=== PATIENT | male | born 1960 | race Caucasian/White ===

== ENCOUNTER 2016-11-14 22:01 | Emergency (ER) | payer OTHER ==
[2016-11-14 22:13] VITALS: BP 165/103
[2016-11-14] MEDS ORDERED: Sodium Chloride 0.9% 500 ML IV ONE (22:25)
[2016-11-14] MEDS ORDERED: Sodium Chloride 0.9% 10 ML Syringe FLUSH PRN (22:25)
[2016-11-14] MEDS ORDERED: Dicyclomine 10 MG Cap PO ONE (22:32)
[2016-11-14] MEDS ORDERED: Ketorolac 30 MG/ML SDV IVPUSH SCH (22:45)
--- NOTE | 2016-11-15 00:11 | EDM.PDOC ---
ED HPI RENAL/ - General Chief Complaint: Flank Pain Stated Complaint: LEFT SIDE PAIN Time Seen by Provider: 11/14/16 22:25 Source of Information: Reports: Patient, RN notes reviewed - History of Present Illness INITIAL COMMENTS - FREE TEXT/NARRATIVE: 56-year-old male comes in with left-sided flank and left lower abdominal discomfort. Started about 2 or 3 hours ago. Pain is been primarily in the left lower abdomen radiating toward the left groin. He has maybe had some mild low back discomfort but no major back pain. He did have some mild nausea, no vomiting or diarrhea. He states he has felt some voiding urgency and feels like he has had some difficulty voiding compared to usual. No gross hematuria. He has not been constipated. The pain does not radiate over to the right side of his abdomen. - Related Data Allergies/ADRs: Allergies Allergy/AdvReac Type Severity Reaction Status Date / Time No Known Allergies Allergy Verified 11/14/16 22:13 Home Meds: Home Meds Triamterene/Hydrochlorothiazid [Triamterene-HCTZ 37.5-25 MG] 0.5 tab PO DAILY [History] Past Medical History HEENT History: Reports: Other (see below) Other HEENT History: menieres disease - Past Surgical History HEENT Surgical History: Reports: Other (see below) Other HEENT Surgeries/Procedures: ORIF Orbit Social & Family History - Family History Family Medical History: Noncontributory - Tobacco Use Smoking Status *Q: Never Smoker Second Hand Smoke Exposure: No - Caffeine Use Caffeine Use: Reports: None - Recreational Drug Use Recreational Drug Use: No ED ROS GENERAL - Review of Systems Review Of Systems: See Below Constitutional: Denies: fever, chills HEENT: Reports: No symptoms Respiratory: Denies: shortness of breath Cardiovascular: Denies: Chest pain GI/Abdominal: Reports: Abdominal pain (left lower abdomen), Nausea (mild). Denies: Black stool, Diarrhea, Hematochezia, Melena, Vomiting : Reports: urgency (mild) Musculoskeletal: Reports: back pain (very slight discomfort left back) Skin: Reports: no symptoms Neurological: Reports: no symptoms ED EXAM, RENAL/ - Physical Exam Exam: See Below General Appearance: alert, moderate distress Throat/Mouth: Normal inspection, Normal oropharynx Head: atraumatic Neck: supple, full range of motion Respiratory/Chest: no respiratory distress, lungs clear, normal breath sounds Cardiovascular: regular rate, rhythm, no edema GI/Abdominal: soft, tender (very slight tenderness left lower abdomen). No: guarding, rebound Back Exam: No: CVA tenderness (L), CVA tenderness (R) Extremities: normal inspection, normal range of motion Course - Vital Signs Last Recorded V/S: Last Vital Signs Temp 97.3 F 11/14/16 22:10 Pulse 77 11/14/16 22:10 Resp 16 11/14/16 22:10 BP 165/103 H 11/14/16 22:10 Pulse Ox 100 11/14/16 22:10 - Orders/Labs/Meds Orders: Active Orders 24 hr Category Date Time Status Peripheral IV Care [RC] . DIRECTED Care 11/14/16 22:25 Active Abdomen Pelvis wo Cont [CT] Stat Exams 11/14/16 23:55 Taken Ketorolac [Toradol] Med 11/14/16 22:45 Active 30 mg IVPUSH ONETIME Sodium Chloride 0.9% [Saline Flush] Med 11/14/16 22:25 Active 10 ml FLUSH ASDIRECTED PRN Peripheral IV Insertion Adult [OM.PC] Stat Oth 11/14/16 22:25 Ordered Medication Orders Ketorolac Tromethamine (Toradol) 30 mg IVPUSH ONETIME [facility] Last Admin: 11/14/16 22:52 Dose: 30 mg Sodium Chloride (Saline Flush) 10 ml FLUSH ASDIRECTED PRN PRN Reason: Keep Vein Open Last Admin: 11/14/16 22:53 Dose: 10 ml Labs: Laboratory Tests 11/14/16 11/14/16 11/14/16 Range/Units 22:35 22:50 22:50 WBC 11.99 H (4.23-9.07) K/mm3 RBC 4.95 (4.63-6.08) M/mm3 Hgb 14.7 (13.7-17.5) gm/L Hct 43.4 (40.1-51.0) % MCV 87.7 (79.0-92.2) fl MCH 29.7 (25.7-32.2) pg MCHC 33.9 (32.2-35.5) g/dl RDW Std Deviation 39.2 (35.1-43.9) fL Plt Count 215 (163-337) K/mm3 MPV 11.3 (9.4-12.3) fl Neut % (Auto) 68.6 H (34.0-67.9) % Lymph % (Auto) 18.8 L (21.8-53.1) % [place] % (Auto) 10.8 (5.3-12.2) % Eos % (Auto) 1.3 (0.8-7.0) Baso % (Auto) 0.2 (0.1-1.2) % Neut # 8.22 H (1.78-5.38) K/mm3 Lymph # 2.26 (1.32-3.57) K/mm3 [place] # 1.30 H (0.30-0.82) K/mm3 Eos # 0.16 (0.04-0.54) K/mm3 Baso # 0.02 (0.01-0.08) K/mm3 Sodium 139 (136-145) mEq/L Potassium 3.6 (3.5-5.1) mEq/L Chloride 101 (98-107) mEq/L Carbon Dioxide 29 (21-32) mEq/L Anion Gap 12.6 (5-15) BUN 14 (7-18) mg/dL Creatinine 1.0 (0.7-1.3) mg/dL Est Cr Clr Drug Dosing 94.76 mL/min Estimated GFR (MDRD) > 60 (>60) mL/min BUN/Creatinine Ratio 14.0 (14-18) Glucose 128 H (74-106) mg/dL Calcium 8.8 (8.5-10.1) mg/dL Total Bilirubin 0.4 (0.2-1.0) mg/dL AST 18 (15-37) U/L ALT 22 (16-63) U/L Alkaline Phosphatase 96 (46-116) U/L Total Protein 7.4 (6.4-8.2) g/dl Albumin 4.2 (3.4-5.0) g/dl Globulin 3.2 gm/dL Albumin/Globulin Ratio 1.3 (1-2) Urine Color Light yellow (Yellow) Urine Appearance Slt cloudy H (Clear) Urine pH 7.0 (5.0-8.0) Ur Specific [place] 1.020 (1.005-1.030) Urine Protein Negative (Negative) Urine Glucose (UA) Negative (Negative) Urine Ketones Negative (Negative) Urine Occult Blood 2+ H (Negative) Urine Nitrite Negative (Negative) Urine Bilirubin Negative (Negative) Urine Urobilinogen 0.2 (0.2-1.0) Ur Leukocyte Esterase Negative (Negative) Urine RBC 0-5 (0-5) /hpf Urine WBC 0-5 (0-5) /hpf Ur Squamous Epith Cells Not seen (0-5) /hpf Amorphous Sediment Few H (NOT SEEN) /hpf Urine Bacteria Rare (FEW) /hpf Urine Mucus Not seen (FEW) /hpf Meds: Medications Generic Name Dose Route Start Last Admin Trade Name Freq PRN Reason Stop Dose Admin Ketorolac Tromethamine 30 mg 11/14/16 22:45 11/14/16 22:52 Toradol IVPUSH 30 mg ONETIME CHETNA Administration Sodium Chloride 10 ml 11/14/16 22:25 11/14/16 22:53 Saline Flush FLUSH 10 ml ASDIRECTED PRN Administration Keep Vein Open Discontinued Medications Generic Name Dose Route Start Last Admin Trade Name Freq PRN Reason Stop Dose Admin Dicyclomine HCl 10 mg 11/14/16 22:32 11/14/16 22:52 Bentyl PO 11/14/16 22:33 10 mg ONETIME ONE Administration Sodium Chloride 500 mls @ 999 mls/hr 11/14/16 22:25 11/14/16 22:51 Normal Saline IV 11/14/16 22:55 999 mls/hr .BOLUS ONE Administration - Re-Assessments/Exams Free Text/Narrative Re-Assessment/Exam: 11/15/16 00:11. he has had good relief of discomfort from IV Toradol. However because he does have 2+ hematuria and was having very significant discomfort at home and even on arrival we're going to do a renal CT to determine if this indeed is a kidney stone problem or not. 11/15/16 01:00. CT did show a stone, 5 mm distal left UVJ with some hydronephrosis and perinephric stranding, see report for details. He did obtained good relief of his discomfort with IV Toradol. Discharge instructions as documented Departure - Departure Time of Disposition: 01:01 Disposition: Home, Self-Care 01 Condition: fair Clinical Impression: Ureteric colic Instructions: Kidney Stones, [id number] Referrals: PCP,None [Primary Care Provider] - Forms: ED Department Discharge Additional Instructions: you have a 5 mm size stone sitting just on top of the bladder on the left side. Use strainer when voiding to check for passage of stone. If you do see the stone in the strainer then you know that you passed the stone. If you have not passed the stone by Friday morning I suggest following up at our [facility] walk-in clinic to obtain referral and appointment to see a Urologist. you can take Tylenol up to 4 times daily as needed for discomfort. You may take an occasional dose of Advil or ibuprofen 600 mg but I would recommend not taking that more than 2 or 3 times daily. You may take Percocet if needed for severe pain not relieved by above medications. Do not take Tylenol and Percocet at the same time. It is recommended that You not be driving when taking Percocet and to not drive for at least 6 hours after taking Percocet which is a fairly strong narcotic medication. return to ED if symptoms worsening in any way - My Orders Last 24 Hours: My Active Orders 11/14/16 22:25 Peripheral IV Care [RC] . DIRECTED Sodium Chloride 0.9% [Saline Flush] 10 ml FLUSH ASDIRECTED PRN Peripheral IV Insertion Adult [OM.PC] Stat 11/14/16 22:45 Ketorolac [Toradol] 30 mg IVPUSH ONETIME 11/14/16 23:55 Abdomen Pelvis wo Cont [CT] Stat - Assessment/Plan Last 24 Hours: My Active Orders 11/14/16 22:25 Peripheral IV Care [RC] . DIRECTED Sodium Chloride 0.9% [Saline Flush] 10 ml FLUSH ASDIRECTED PRN Peripheral IV Insertion Adult [OM.PC] Stat 11/14/16 22:45 Ketorolac [Toradol] 30 mg IVPUSH ONETIME 11/14/16 23:55 Abdomen Pelvis wo Cont [CT] Stat
--- NOTE | 2016-11-15 07:17 | CT ---
CT abdomen and pelvis Technique: Multiple axial sections were obtained from above the dome of the diaphragm inferiorly through the pubic symphysis. Intravenous and oral contrast not given. Study performed as a renal stone protocol. Comparison: No previous study. Findings: 5 mm obstructing stone is seen within the distal left ureter slightly proximal to the UVJ. This causes left-sided hydronephrosis of a horseshoe kidney. No abnormal calcifications are seen within the kidneys. Inflammatory change is seen around the left side of the horseshoe kidney compatible with change from the obstructing stone. Visualized lung bases show nothing acute. Noncontrast appearance of the liver appears within normal limits. Spleen also appears within normal limits. Adrenal glands show no nodule. Pancreas appears within normal limits. Aorta shows no aneurysmal dilatation. No retroperitoneal adenopathy or mesenteric abnormalities are seen. No pelvic mass or adenopathy is noted. Small fat-containing left inguinal hernia is noted. Incidental sigmoid diverticuli seen with no inflammatory change. Appendix is not visualized. Bone window settings were reviewed which show mild scattered degenerative change within the spine. Small fat-containing umbilical hernia is noted. Impression: 1. Horseshoe kidney. Inflammatory change on the left side of the horseshoe kidney with left-sided hydronephrosis caused by an obstructing 5 mm stone within the distal left ureter near the UVJ. 2. Other incidental findings as noted above. Diagnostic code #3 I agree with preliminary report issued by [facility] (preliminary report dictated on 11/15/16, 1:39 AM Central Time)
== END 2016-11-15 01:20 | disposition home or self-care (01) ==
LOC: JD.ED 22:01
DX: N23 Unspecified renal colic (principal); Z79.899 Other long term (current) drug therapy; Z98.890 Other specified postprocedural states
CPT/HCPCS: 36415; 74176; 80053; 81001; 85025; 96361; 96374; 99284; A9270; J1885; J7040; J7050

== ENCOUNTER 2016-11-16 19:23 | Emergency (ER) | payer OTHER ==
[2016-11-16 19:33] VITALS: BP 161/98
[2016-11-16] MEDS ORDERED: Sodium Chloride 0.9% 1,000 ML IV SCH (19:45)
[2016-11-16] MEDS ORDERED: HYDROmorphone 1 MG/ML Syringe IVPUSH ONE (19:46)
[2016-11-16] MEDS ORDERED: Ketorolac 30 MG/ML SDV IVPUSH ONE (19:46)
[2016-11-16] MEDS ORDERED: Ondansetron 4 MG/2 ML SDV IVPUSH ONE (19:46)
--- NOTE | 2016-11-16 19:52 | EDM.PDOC ---
ED HPI RENAL/ - General Chief Complaint: Abdominal Pain Stated Complaint: LOWER LEFT SIDE PAIN Time Seen by Provider: 11/16/16 19:29 Source of Information: Reports: Patient History Limitations: Reports: No limitations - History of Present Illness INITIAL COMMENTS - FREE TEXT/NARRATIVE: This is a 56 year old male. He was diagnosised on 11/14/[address] scan with a left 5 mm ureteral stone by the UVJ. There was hydronephrosis noted on the left since as well. He was to come to the [facility] walk-in clinic on Friday for referral to at urologist if he does not pass the stone by Friday. Around 5 PM this evening onset of sharp pain in the left flank area. He took a percocet but it did not seem to help. Had nausea but no vomiting noted. He has not noted any blood in his urine. Do to the continued pain he comes back to the ER. No fever or chills have been noted today. The pain is still in the left flank and does not radiate into the left groin or testicles yet. - Related Data Allergies/ADRs: Allergies Allergy/AdvReac Type Severity Reaction Status Date / Time No Known Allergies Allergy Verified 11/16/16 19:33 Home Meds: Home Meds Triamterene/Hydrochlorothiazid [Triamterene-HCTZ 37.5-25 MG] 0.5 tab PO DAILY [History] Ondansetron [Zofran ODT] 4 mg PO Q6H PRN #10 tab.dis 11/16/16 [Rx] Tamsulosin [Flomax] 0.4 mg PO QAM #5 cap.er 11/16/16 [Rx] Past Medical History HEENT History: Reports: Other (see below) Other HEENT History: menieres disease Genitourinary History: Reports: Renal calculus - Past Surgical History HEENT Surgical History: Reports: Other (see below) Other HEENT Surgeries/Procedures: ORIF Orbit Social & Family History - Family History Family Medical History: Noncontributory - Tobacco Use Smoking Status *Q: Never Smoker Second Hand Smoke Exposure: No - Caffeine Use Caffeine Use: Reports: None - Recreational Drug Use Recreational Drug Use: No ED ROS GENERAL - Review of Systems Review Of Systems: See Below Constitutional: Denies: fever, chills HEENT: Reports: No symptoms Respiratory: Reports: no symptoms Cardiovascular: Reports: No symptoms Endocrine: Reports: no symptoms GI/Abdominal: Reports: Nausea. Denies: Abdominal pain, Diarrhea, Vomiting : Reports: flank pain. Denies: hematuria Musculoskeletal: Reports: no symptoms Skin: Reports: no symptoms Neurological: Reports: no symptoms Psychiatric: Reports: No symptoms Hematologic/Lymphatic: Reports: no symptoms ED EXAM, RENAL/ - Physical Exam Exam: See Below Exam Limited By: No limitations General Appearance: alert, WD/WN, mild distress Eye Exam: bilateral eye: normal inspection Ears: normal external exam Nose: normal inspection Throat/Mouth: Normal inspection, Normal lips, Normal voice Head: normocephalic Neck: supple Respiratory/Chest: no respiratory distress, lungs clear, normal breath sounds Cardiovascular: regular rate, rhythm, no murmur GI/Abdominal: other (Enlarged abdomin with left flank pain noted.) Back Exam: full range of motion Extremities: normal inspection, normal range of motion Neurological: alert, oriented Psychiatric: anxious Skin Exam: Warm, Dry Course - Vital Signs Last Recorded V/S: Last Vital Signs Temp 98.5 F 11/16/16 19:30 Pulse 83 11/16/16 19:30 Resp 20 11/16/16 19:30 BP 161/98 H 11/16/16 19:30 Pulse Ox 100 11/16/16 19:30 - Orders/Labs/Meds Orders: Active Orders 24 hr Category Date Time Status Sodium Chloride 0.9% [Normal Saline] 1,000 ml Med 11/16/16 19:45 Active IV ASDIRECTED Medication Orders Sodium Chloride (Normal Saline) 1,000 mls @ 1,000 mls/hr IV ASDIRECTED CHETNA Last Admin: 11/16/16 19:53 Dose: 1,000 mls/hr Labs: Laboratory Tests 11/16/16 11/16/16 11/16/16 Range/Units 19:40 19:40 20:14 WBC 13.66 H (4.23-9.07) K/mm3 RBC 4.90 (4.63-6.08) M/mm3 Hgb 14.6 (13.7-17.5) gm/L Hct 42.7 (40.1-51.0) % MCV 87.1 (79.0-92.2) fl MCH 29.8 (25.7-32.2) pg MCHC 34.2 (32.2-35.5) g/dl RDW Std Deviation 39.0 (35.1-43.9) fL Plt Count 220 (163-337) K/mm3 MPV 11.6 (9.4-12.3) fl Neut % (Auto) 61.1 (34.0-67.9) % Lymph % (Auto) 25.3 (21.8-53.1) % [place] % (Auto) 12.0 (5.3-12.2) % Eos % (Auto) 1.2 (0.8-7.0) Baso % (Auto) 0.1 (0.1-1.2) % Neut # 8.35 H (1.78-5.38) K/mm3 Lymph # 3.45 (1.32-3.57) K/mm3 [place] # 1.64 H (0.30-0.82) K/mm3 Eos # 0.16 (0.04-0.54) K/mm3 Baso # 0.02 (0.01-0.08) K/mm3 Manual Slide Review Normal smear Sodium 140 (136-145) mEq/L Potassium 3.2 L (3.5-5.1) mEq/L Chloride 103 (98-107) mEq/L Carbon Dioxide 27 (21-32) mEq/L Anion Gap 13.2 (5-15) BUN 17 (7-18) mg/dL Creatinine 1.4 H (0.7-1.3) mg/dL Est Cr Clr Drug Dosing TNP Estimated GFR (MDRD) 52 (>60) mL/min BUN/Creatinine Ratio 12.1 L (14-18) Glucose 147 H (74-106) mg/dL Calcium 8.5 (8.5-10.1) mg/dL Total Bilirubin 0.3 (0.2-1.0) mg/dL AST 15 (15-37) U/L ALT 17 (16-63) U/L Alkaline Phosphatase 90 (46-116) U/L Total Protein 7.1 (6.4-8.2) g/dl Albumin 3.9 (3.4-5.0) g/dl Globulin 3.2 gm/dL Albumin/Globulin Ratio 1.2 (1-2) Urine Color Yellow (Yellow) Urine Appearance Clear (Clear) Urine pH 6.5 (5.0-8.0) Ur Specific [place] 1.025 (1.005-1.030) Urine Protein Negative (Negative) Urine Glucose (UA) Negative (Negative) Urine Ketones Negative (Negative) Urine Occult Blood Negative (Negative) Urine Nitrite Negative (Negative) Urine Bilirubin Negative (Negative) Urine Urobilinogen 0.2 (0.2-1.0) Ur Leukocyte Esterase Negative (Negative) Urine RBC 0-5 (0-5) /hpf Urine WBC 0-5 (0-5) /hpf Ur Epithelial Cells 0-5 (0-5) /hpf Urine Bacteria Rare (FEW) /hpf Urine Mucus Not seen (FEW) /hpf Meds: Medications Generic Name Dose Route Start Last Admin Trade Name Freq PRN Reason Stop Dose Admin Sodium Chloride 1,000 mls @ 1,000 mls/hr 11/16/16 19:45 11/16/16 19:53 Normal Saline IV 1,000 mls/hr ASDIRECTED CHETNA Administration Discontinued Medications Generic Name Dose Route Start Last Admin Trade Name Freq PRN Reason Stop Dose Admin Hydromorphone HCl 0.5 mg 11/16/16 19:46 11/16/16 19:56 Dilaudid IVPUSH 11/16/16 19:47 0.5 mg ONETIME ONE Administration Ketorolac Tromethamine 30 mg 11/16/16 19:46 11/16/16 19:58 Toradol IVPUSH 11/16/16 19:47 30 mg ONETIME ONE Administration Ondansetron HCl 4 mg 11/16/16 19:46 11/16/16 19:54 Zofran IVPUSH 11/16/16 19:47 4 mg ONETIME ONE Administration - Re-Assessments/Exams Free Text/Narrative Re-Assessment/Exam: 11/16/16 23:21 patient is feeling much better and he wants to go home. Departure - Departure Time of Disposition: 23:21 Disposition: Home, Self-Care 01 Condition: good Clinical Impression: Left nephrolithiasis, Ureteral colic Prescriptions: Ondansetron [Zofran ODT] 4 mg PO Q6H PRN #10 tab.dis PRN Reason: Nausea Tamsulosin [Flomax] 0.4 mg PO QAM #5 cap.er Forms: ED Department Discharge Additional Instructions: continue to drink lots of fluids, strain your urine for the kidney stone, if you do not pass the stone by Friday morning followup with [facility] walk-in clinic to get hooked up with the urologist, start taking the Flomax, use the Zofran as needed for nausea and pain medications as needed, if your symptoms worsen or you develop a fever return to the ER - My Orders Last 24 Hours: My Active Orders 11/16/16 19:45 Sodium Chloride 0.9% [Normal Saline] 1,000 ml IV ASDIRECTED - Assessment/Plan Last 24 Hours: My Active Orders 11/16/16 19:45 Sodium Chloride 0.9% [Normal Saline] 1,000 ml IV ASDIRECTED
== END 2016-11-16 23:37 | disposition home or self-care (01) ==
LOC: JD.ED 19:23
DX: N20.2 Calculus of kidney with calculus of ureter (principal); Z79.899 Other long term (current) drug therapy
CPT/HCPCS: 36415; 80053; 81001; 85025; 96361; 96374; 96375; 99284; J1170; J1885; J2405; J7040

== ENCOUNTER 2016-11-17 20:25 | Emergency (ER) | payer OTHER ==
[2016-11-17] MEDS ORDERED: HYDROmorphone 1 MG/ML Syringe IVPUSH ONE (21:00)
[2016-11-17] MEDS ORDERED: Sodium Chloride 0.9% 1,000 ML IV SCH (21:00)
[2016-11-17] MEDS ORDERED: Sodium Chloride 0.9% 10 ML Syringe FLUSH PRN (21:00)
[2016-11-17] MEDS ORDERED: Ondansetron 4 MG/2 ML SDV IVPUSH ONE (21:00)
[2016-11-17] MEDS ORDERED: LORazepam 2 MG/ML MDV IVPUSH ONE (21:00)
[2016-11-17] MEDS ORDERED: Metoclopramide 10 MG/2 ML SDV IVPUSH ONE (21:39)
--- NOTE | 2016-11-17 22:19 | EDM.PDOC ---
ED HPI RENAL/ - General Chief Complaint: Genitourinary Problem Stated Complaint: LOWER BACK PAIN NAUSEA CONSTIPATION Time Seen by Provider: 11/17/16 20:42 Source of Information: Reports: Patient, RN notes reviewed - History of Present Illness INITIAL COMMENTS - FREE TEXT/NARRATIVE: 56-year-old male comes in with continued left flank and back discomfort. He presented to the ED 3 or 4 days ago with left flank back and left lower pelvic discomfort compatible with kidney stone. CT of the abdomen did confirm a 5 mm stone at the left UVJ junction with some hydronephrosis. he was treated with IV nausea and pain medicine and had good relief of his discomfort upon discharge. He then returned to the ED yesterday evening with recurrence of discomfort. See that record for details. He was treated with further IV fluid and pain medicine , started on Flomax as well. He states today he has been "awful". He continues to have a lot of left-sided discomfort in the left flank radiating to the back and also down into the groin. He has had a lot of nausea, some vomiting. He states he has not been able to eat. Not drinking fluids well. He has tried taken a pain pill or 2 today but not sure if he's kept any of that down. He also feels that he is getting constipated. Does not remember when he has last had a BM. No fever or chills. - Related Data Allergies/ADRs: Allergies Allergy/AdvReac Type Severity Reaction Status Date / Time No Known Allergies Allergy Verified 11/17/16 20:33 Home Meds: Home Meds Triamterene/Hydrochlorothiazid [Triamterene-HCTZ 37.5-25 MG] 0.5 tab PO DAILY [History] Ondansetron [Zofran ODT] 4 mg PO Q6H PRN #10 tab.dis 11/16/16 [Rx] Tamsulosin [Flomax] 0.4 mg PO QAM #5 cap.er 11/16/16 [Rx] Past Medical History HEENT History: Reports: Other (see below) Other HEENT History: menieres disease Genitourinary History: Reports: Renal calculus - Infectious Disease History Infectious Disease History: Reports: Chicken pox - Past Surgical History HEENT Surgical History: Reports: Other (see below) Other HEENT Surgeries/Procedures: ORIF Orbit Social & Family History - Family History Family Medical History: Noncontributory - Tobacco Use Smoking Status *Q: Never Smoker Second Hand Smoke Exposure: No - Caffeine Use Caffeine Use: Reports: None - Recreational Drug Use Recreational Drug Use: No ED ROS GENERAL - Review of Systems Review Of Systems: See Below Constitutional: Denies: fever, chills HEENT: Reports: No symptoms Respiratory: Denies: shortness of breath Cardiovascular: Denies: Chest pain GI/Abdominal: Reports: Abdominal pain (left flank pain), Nausea, Vomiting : Denies: hematuria Musculoskeletal: Reports: back pain (left-sided). Denies: joint pain Neurological: Reports: dizziness (mild). Denies: numbness, tingling ED EXAM, RENAL/ - Physical Exam Exam: See Below General Appearance: alert, anxious, moderate distress Eye Exam: bilateral eye: PERRL Throat/Mouth: Other. No: Inflammation Head: atraumatic. No: facial swelling Neck: supple Respiratory/Chest: no respiratory distress, lungs clear, normal breath sounds Cardiovascular: regular rate, rhythm GI/Abdominal: tender (there is mild tenderness of the left lower abdomen) Back Exam: CVA tenderness (L) (mild). No: CVA tenderness (R) Extremities: normal inspection, normal range of motion Neurological: alert, oriented, no motor/sensory deficits Skin Exam: Warm, Dry, Normal color, No rash Course - Vital Signs Last Recorded V/S: Last Vital Signs Temp 98.6 F 11/17/16 20:34 Pulse 81 11/17/16 20:34 Resp 18 11/17/16 20:34 BP 164/86 H 11/17/16 20:34 Pulse Ox 96 11/17/16 20:34 - Orders/Labs/Meds Orders: Active Orders 24 hr Category Date Time Status Peripheral IV Care [RC] . DIRECTED Care 11/17/16 21:01 Active Ketorolac [Toradol] Med 11/18/16 01:00 Active 30 mg IVPUSH ONETIME Ketorolac [Toradol] Med 11/18/16 07:00 Active 30 mg IVPUSH ONETIME Sodium Chloride 0.9% [Normal Saline] 1,000 ml Med 11/18/16 01:00 Active IV ASDIRECTED Sodium Chloride 0.9% [Normal Saline] 1,000 ml Med 11/18/16 07:00 Active IV ASDIRECTED Sodium Chloride 0.9% [Normal Saline] 1,000 ml Med 11/17/16 21:00 Active IV ONETIME Sodium Chloride 0.9% [Saline Flush] Med 11/17/16 21:00 Active 10 ml FLUSH ASDIRECTED PRN Peripheral IV Insertion Adult [OM.PC] Stat Oth 11/17/16 21:00 Ordered Medication Orders Sodium Chloride (Normal Saline) 1,000 mls @ 999 mls/hr IV ONETIME CHETNA Last Admin: 11/17/16 21:10 Dose: 999 mls/hr Sodium Chloride (Normal Saline) 1,000 mls @ 150 mls/hr IV ASDIRECTED CHETNA Last Admin: 11/18/16 01:04 Dose: 150 mls/hr Sodium Chloride (Normal Saline) 1,000 mls @ 75 mls/hr IV ASDIRECTED CHETNA Ketorolac Tromethamine (Toradol) 30 mg IVPUSH ONETIME CHETNA Last Admin: 11/18/16 01:06 Dose: 30 mg Ketorolac Tromethamine (Toradol) 30 mg IVPUSH ONETIME CHETNA Last Admin: 11/18/16 06:57 Dose: 30 mg Sodium Chloride (Saline Flush) 10 ml FLUSH ASDIRECTED PRN PRN Reason: Keep Vein Open Last Admin: 11/17/16 21:10 Dose: 10 ml Labs: Laboratory Tests 11/18/16 Range/Units 00:05 Urine Color Yellow (Yellow) Urine Appearance Clear (Clear) Urine pH 6.0 (5.0-8.0) Ur Specific [place] 1.020 (1.005-1.030) Urine Protein Negative (Negative) Urine Glucose (UA) Negative (Negative) Urine Ketones Trace H (Negative) Urine Occult Blood Trace-lysed H (Negative) Urine Nitrite Negative (Negative) Urine Bilirubin Negative (Negative) Urine Urobilinogen 1.0 (0.2-1.0) Ur Leukocyte Esterase Trace H (Negative) Urine RBC 0-5 (0-5) /hpf Urine WBC 0-5 (0-5) /hpf Ur Squamous Epith Cells Not seen (0-5) /hpf Urine Bacteria Rare (FEW) /hpf Urine Mucus Not seen (FEW) /hpf Meds: Medications Generic Name Dose Route Start Last Admin Trade Name Freq PRN Reason Stop Dose Admin Sodium Chloride 1,000 mls @ 999 mls/hr 11/17/16 21:00 11/17/16 21:10 Normal Saline IV 999 mls/hr ONETIME CHETNA Administration Sodium Chloride 1,000 mls @ 150 mls/hr 11/18/16 01:00 11/18/16 01:04 Normal Saline IV 150 mls/hr ASDIRECTED CHETNA Administration Sodium Chloride 1,000 mls @ 75 mls/hr 11/18/16 07:00 Normal Saline IV ASDIRECTED CHETNA Ketorolac Tromethamine 30 mg 11/18/16 01:00 11/18/16 01:06 Toradol IVPUSH 30 mg ONETIME CHETNA Administration Ketorolac Tromethamine 30 mg 11/18/16 07:00 11/18/16 06:57 Toradol IVPUSH 30 mg ONETIME CHETNA Administration Sodium Chloride 10 ml 11/17/16 21:00 11/17/16 21:10 Saline Flush FLUSH 10 ml ASDIRECTED PRN Administration Keep Vein Open Discontinued Medications Generic Name Dose Route Start Last Admin Trade Name Alexeyq PRN Reason Stop Dose Admin Hydromorphone HCl 1 mg 11/17/16 21:00 11/17/16 21:12 Dilaudid IVPUSH 11/17/16 21:01 1 mg ONETIME ONE Administration Hydromorphone HCl 0.5 mg 11/18/16 00:54 11/18/16 01:08 Dilaudid IVPUSH 11/18/16 00:55 0.5 mg ONETIME ONE Administration Lorazepam 1 mg 11/17/16 21:00 11/17/16 21:16 Ativan IVPUSH 11/17/16 21:01 1 mg ONETIME ONE Administration Metoclopramide HCl 10 mg 11/17/16 21:39 11/17/16 21:50 Reglan IVPUSH 11/17/16 21:40 10 mg ONETIME ONE Administration Ondansetron HCl 4 mg 11/17/16 21:00 11/17/16 21:10 Zofran IVPUSH 11/17/16 21:01 4 mg ONETIME ONE Administration - Re-Assessments/Exams Free Text/Narrative Re-Assessment/Exam: 11/17/16 22:28 records of the last 2 visits have been reviewed. I did see him on his initial evaluation 3 or 4 days ago and distinctly remember the 5 mm stone left UVJ. We did discuss the need to followup at the walk-in clinic tomorrow morning if he has not passed the stone by then. The risk of not passing the stone was discussed with him. He will need to see a Urologist. The plan was to have the walk-in clinic help him with a referral as he was initially seen Friday or evening and then again yesterday, Friday evening. 11/18/16 11:40. Sleeping after IV meds 01:00 pain is starting to come back again left flank radiating to left groin and also to the back. He currently is staying at a motel. He has no one to drive him back to the motel and this is now his third visit in 3-1/2 days. He states once he goes back to motel he gets nauseated starts vomiting and has been unable to keep pain pills down. We will keep him here in the ED the remainder of the night. We will continue to give IV fluid and continue to give nausea and pain medicine as needed and then at 7:00 this morning will try hard to get him a referral to a Urologist. 11/18/16 07:07we have an appointment for him to see Dr. Nobles, Urologist [facility] [place] for 3:00 central time this afternoon. Departure - Departure Time of Disposition: 08:00 Disposition: Home, Self-Care 01 Condition: fair Clinical Impression: Ureteral colic, Dehydration Vomiting Qualifiers: Vomiting type: unspecified Vomiting Intractability: intractable Nausea presence : with nausea Qualified Code(s): R11.2 - Nausea with vomiting, unspecified Instructions: Renal Colic, [id number] Referrals: PCP,None [Primary Care Provider] - Forms: ED Department Discharge Additional Instructions: you have an appointment to see Dr Nobles, Urologist [facility] at 3:00 central, 2:[address] scan has been pushed to their clinic. I suggest you be there at least 15 minutes early. We have let you eat now but I suggest you stick to clear liquids only from now until after your appointment. You may take tylenol for pain but do not take anything stronger if you plan to drive. Zofran as previously prescribed if needed for nausea or vomiting. - My Orders Last 24 Hours: My Active Orders 11/17/16 21:00 Sodium Chloride 0.9% [Normal Saline] 1,000 ml IV ONETIME Sodium Chloride 0.9% [Saline Flush] 10 ml FLUSH ASDIRECTED PRN Peripheral IV Insertion Adult [OM.PC] Stat 11/17/16 21:01 Peripheral IV Care [RC] . DIRECTED 11/18/16 01:00 Ketorolac [Toradol] 30 mg IVPUSH ONETIME Sodium Chloride 0.9% [Normal Saline] 1,000 ml IV ASDIRECTED 11/18/16 07:00 Ketorolac [Toradol] 30 mg IVPUSH ONETIME Sodium Chloride 0.9% [Normal Saline] 1,000 ml IV ASDIRECTED - Assessment/Plan Last 24 Hours: My Active Orders 11/17/16 21:00 Sodium Chloride 0.9% [Normal Saline] 1,000 ml IV ONETIME Sodium Chloride 0.9% [Saline Flush] 10 ml FLUSH ASDIRECTED PRN Peripheral IV Insertion Adult [OM.PC] Stat 11/17/16 21:01 Peripheral IV Care [RC] . DIRECTED 11/18/16 01:00 Ketorolac [Toradol] 30 mg IVPUSH ONETIME Sodium Chloride 0.9% [Normal Saline] 1,000 ml IV ASDIRECTED 11/18/16 07:00 Ketorolac [Toradol] 30 mg IVPUSH ONETIME Sodium Chloride 0.9% [Normal Saline] 1,000 ml IV ASDIRECTED
[2016-11-18] MEDS ORDERED: HYDROmorphone 0.5 MG/0.5 ML Syringe IVPUSH ONE (00:54)
[2016-11-18] MEDS ORDERED: Sodium Chloride 0.9% 1,000 ML IV SCH ×2 (01:00→07:00)
[2016-11-18] MEDS ORDERED: Ketorolac 30 MG/ML SDV IVPUSH SCH ×2 (01:00→07:00)
[2016-11-18 08:07] VITALS: BP 151/88
== END 2016-11-18 08:05 | disposition home or self-care (01) ==
LOC: JD.ED 20:25
DX: N23 Unspecified renal colic (principal); E86.0 Dehydration; Z98.890 Other specified postprocedural states; Z79.899 Other long term (current) drug therapy
CPT/HCPCS: 81001; 99284; J1170; J1885; J2060; J2405; J2765; J7040; J7050; 96361; 96374; 96375; 96376

== ENCOUNTER 2017-10-17 15:48 | Emergency (ER) | payer OTHER ==
[2017-10-17 16:02] VITALS: BP 167/100
--- NOTE | 2017-10-17 16:03 | EDM.PDOC ---
ED HPI GENERAL MEDICAL PROBLEM - General Chief Complaint: Neuro Symptoms/Deficits Stated Complaint: VERTIGO/VOMITING Time Seen by Provider: 10/17/17 16:00 Source of Information: Reports: Patient History Limitations: Reports: No Limitations - History of Present Illness INITIAL COMMENTS - FREE TEXT/NARRATIVE: 57-year-old male with known Mnire's disease presents to the ED with an acute onset of vertigo starting yesterday p.m. Associated nausea and vomiting. His only recourse is to lie real still with his head tilted to the right side at 45 angle. This stops the vertigo. It is worsened by looking to the left. When he walks he is listing or staggering towards the right side. He has had Mnire's disease for greater than 10 years. Last attack was in about 2007. No recent falls or closed head injuries. Unable to eat or drink since yesterday. No fever or chills. He is getting over a course of shingles or herpes zoster involving his left lateral chest wall in T4-5 dermatome. This started about 3 weeks ago. He has not been ill with influenza. He does feel like his ears are muffled. He has chronic tinnitus in his left ear and decreased hearing in his left ear. Is seen multiple specialists for Mnire's disease across [place]. He tries to follow a low-sodium diet and is on triamterene/hydrochlorothiazide daily for Mnire's disease. Does have an associated headache. Onset: Sudden Onset Date: 10/16/17 Onset Time: 13:00 Duration: Hour(s): Location: Reports: Other (Severe vertigo with any movement of his head.) Quality: Reports: Other Severity: Severe (Severe vertigo) Improves with: Reports: Rest (Holding very still with his head looking to the right side at 45 angle. Worsened) Worsens with: Reports: Movement Context: Reports: Other (Known Mnire's disease with intermittent attacks of severe vertigo.). Denies: Activity, Exercise, Lifting, Sick Contact, Trauma Associated Symptoms: Reports: Loss of Appetite, Malaise, Nausea/Vomiting, Weakness. Denies: Confusion, Chest Pain, Cough, cough w sputum, Diaphoresis, Fever/Chills, Headaches, Rash, Seizure, Shortness of Breath, Syncope Treatments [employer]: Reports: Other (see below) (None.) - Related Data Allergies Allergy/AdvReac Type Severity Reaction Status Date / Time No Known Allergies Allergy Verified 10/17/17 15:57 Home Meds: Home Meds Triamterene/Hydrochlorothiazid [Triamterene-HCTZ 37.5-25 MG] 0.5 tab PO DAILY [History] LORazepam [Ativan] 1 mg PO Q8H PRN #15 tablet 10/17/17 [Rx] Metoclopramide HCl [Reglan] 10 mg PO Q6H #20 tablet 10/17/17 [Rx] Past Medical History HEENT History: Reports: Other (See Below) Other HEENT History: menieres disease Genitourinary History: Reports: Renal Calculus - Infectious Disease History Infectious Disease History: Reports: Chicken Pox - Past Surgical History HEENT Surgical History: Reports: Other (See Below) Social & Family History - Family History Family Medical History: Noncontributory - Tobacco Use Smoking Status *Q: Never Smoker Second Hand Smoke Exposure: No - Caffeine Use Caffeine Use: Reports: None - Recreational Drug Use Recreational Drug Use: No - Living Situation & Occupation Living situation: Reports: Occupation: Employed ED ROS GENERAL - Review of Systems Review Of Systems: See Below Constitutional: Reports: Malaise, Weakness, Fatigue, Decreased Appetite. Denies : Fever, Chills HEENT: Reports: Hearing Loss (Severe tinnitus left ear. Chronic hearing loss left ear.), Vertigo (Severe vertigo starting yesterday afternoon.), Other. Denies: Ear Pain Respiratory: Denies: Shortness of Breath, Wheezing, Pleuritic Chest Pain, Cough , Sputum, Hemoptysis Cardiovascular: Reports: Blood Pressure Problem. Denies: Chest Pain, Claudication, Dyspnea on Exertion, Edema, Lightheadedness, Orthopnea ( Hypertension.), Palpitations, PND, Syncope Endocrine: Reports: Fatigue GI/Abdominal: Reports: Nausea, Vomiting (Secondary to vertigo.) : Reports: No Symptoms Musculoskeletal: Reports: No Symptoms Skin: Reports: No Symptoms Neurological: Reports: Dizziness (Severe vertigo.), Difficulty Walking Psychiatric: Reports: No Symptoms Hematologic/Lymphatic: Reports: No Symptoms Immunologic: Reports: No Symptoms ED EXAM, DIZZINESS - Physical Exam Exam: See Below Exam Limited By: Other (Patient has to lie real still with his eyes closed looking to the right during interview. When his eyes are open he has obvious nystatin restricting to the right side.) General Appearance: Alert, WD/WN, Moderate Distress Eye Exam: Right Eye: Nystagmus (On right lateral gaze. Sustained.), Bilateral Eye: Normal Inspection Nystagmus: worsens with head to L, reproducible, constant Ears: Normal TMs Throat/Mouth: Normal Inspection, Normal Lips, Normal Oropharynx, Other Head Exam: Atraumatic, Normocephalic (Uvula is normal) Vertigo: worsens with head to R, reproducible, constant Neck: Normal Inspection, Supple, Non-Tender, Full Range of Motion. No: Lymphadenopathy (L), Lymphadenopathy (R) Respiratory/Chest: No Respiratory Distress, Lungs Clear, Normal Breath Sounds, Chest Non-Tender Cardiovascular: Normal Peripheral Pulses, Regular Rate, Rhythm, No Edema, No Gallop, No Murmur, No Rub GI/Abdominal: Normal Bowel Sounds, Soft, Non-Tender, No Organomegaly, No Abnormal Bruit, No Mass Neurological: Alert, Normal Dorsiflexion, CN II-XII Intact, Normal Plantar Flexion, Normal Reflexes, No Motor/Sensory Deficits, Oriented x 3, Abnormal Finger to Nose (He is able to perform the test but is moderately ataxic in his ability to do so.), Other (No pronator drift. Rapid alternating movements are normal.). No: Normal Gait DTR: 1+: Bicep (R), Bicep (L), Patella (R), Patella (L) Back Exam: Normal Inspection. No: CVA Tenderness (L), CVA Tenderness (R) Extremities: Normal Inspection, Normal Range of Motion, Non-Tender, No Pedal Edema Psychiatric: Normal Affect, Normal Mood Skin Exam: Warm, Dry, Intact, Normal Color, No Rash. No: Diaphoretic Course - Vital Signs Last Recorded V/S: Last Vital Signs Temp 36.3 C 10/17/17 15:59 Pulse 77 10/17/17 15:59 Resp 16 10/17/17 15:59 BP 167/100 H 10/17/17 15:59 Pulse Ox 96 10/17/17 15:59 - Orders/Labs/Meds Orders: Active Orders 24 hr Category Date Time Status Dextrose 5%-0.9% NaCl [Dextrose 5%-Normal Saline] 1,000 Med 10/17/17 16:15 Active ml IV ASDIRECTED Medication Orders Dextrose/Sodium Chloride (Dextrose 5%-Normal Saline) 1,000 mls @ 999 mls/hr IV ASDIRECTED CHETAN Last Admin: 10/17/17 16:34 Dose: 999 mls/hr Labs: Laboratory Tests 10/17/17 10/17/17 Range/Units 16:21 16:21 WBC 10.29 H (4.23-9.07) K/mm3 RBC 5.38 (4.63-6.08) M/mm3 Hgb 16.1 (13.7-17.5) gm/L Hct 46.5 (40.1-51.0) % MCV 86.4 (79.0-92.2) fl MCH 29.9 (25.7-32.2) pg MCHC 34.6 (32.2-35.5) g/dl RDW Std Deviation 39.8 (35.1-43.9) fL Plt Count 243 (163-337) K/mm3 MPV 11.8 (9.4-12.3) fl Neutrophils % (Manual) 74 H (40-60) % Band Neutrophils % 0 (0-10) % Lymphocytes % (Manual) 21 (20-40) % Atypical Lymphs % 0 % Monocytes % (Manual) 4 (2-10) % Eosinophils % (Manual) 1 (0.8-7.0) % Basophils % (Manual) 0 L (0.2-1.2) Platelet Estimate Adequate Plt Morphology Comment Normal RBC Morph Comment Normal Sodium 138 (136-145) mEq/L Potassium 3.6 (3.5-5.1) mEq/L Chloride 100 (98-107) mEq/L Carbon Dioxide 26 (21-32) mEq/L Anion Gap 15.6 H (5-15) BUN 19 H (7-18) mg/dL Creatinine 1.1 (0.7-1.3) mg/dL Est Cr Clr Drug Dosing 85.11 mL/min Estimated GFR (MDRD) > 60 (>60) mL/min BUN/Creatinine Ratio 17.3 (14-18) Glucose 133 H (74-106) mg/dL Calcium 9.5 (8.5-10.1) mg/dL Magnesium 2.1 (1.8-2.4) mg/dl Total Bilirubin 0.9 (0.2-1.0) mg/dL AST 18 (15-37) U/L ALT 22 (16-63) U/L Alkaline Phosphatase 112 (46-116) U/L C-Reactive Protein 0.6 (<1.0) mg/dL Total Protein 8.5 H (6.4-8.2) g/dl Albumin 4.5 (3.4-5.0) g/dl Globulin 4.0 gm/dL Albumin/Globulin Ratio 1.1 (1-2) Meds: Medications Generic Name Dose Route Start Last Admin Trade Name Freq PRN Reason Stop Dose Admin Dextrose/Sodium Chloride 1,000 mls @ 999 mls/hr 10/17/17 16:15 10/17/17 16:34 Dextrose 5%-Normal Saline IV 999 mls/hr ASDIRECTED CHETNA Administration Discontinued Medications Generic Name Dose Route Start Last Admin Trade Name Freq PRN Reason Stop Dose Admin Lorazepam 1 mg 10/17/17 16:16 10/17/17 16:29 Ativan IVPUSH 10/17/17 16:17 1 mg ONETIME ONE Administration Metoclopramide HCl 10 mg 10/17/17 16:16 10/17/17 16:29 Reglan IVPUSH 10/17/17 16:17 10 mg ONETIME ONE Administration - Radiology Interpretation Free Text/Narrative:: 57-year-old male with known Mnire's disease presents to the ED with an acute onset of severe vertigo with associated nausea and vomiting starting at 1300 hrs. yesterday. His last attack was several years ago. He's was diagnosed with M nire's disease greater than 10 years ago. He can continues on triamterene/ hydrochlorothiazide daily for both blood pressure and for control of Mnire's disease. No recent upper respiratory tract infections no closed head injuries. Crease tenderness in his left ear and is been proven in its his left ear dysfunction that causes his vestibular problems. He's not been able to eat or drink much of her leave his bed for the last 24 hours and therefore is mildly volume depleted. Plan IV D5 normal saline at open. Will give Reglan 10 mg IV and Ativan 1 mg IV to try and bring some control to his vertigo symptoms. He mentions that his required hospitalization on several occasions for Mnire's disease in the past. - Re-Assessments/Exams Free Text/Narrative Re-Assessment/Exam: 10/17/17 17:32 White count is 10.29 with 74% neutrophils and no bands. Hemoglobin is 16.1 with hematocrit of 46.5. MCV is normal at 86.4. Platelets are normal at 243,000. Sodium is 138 with potassium of 3.6. Chloride 100 with a bicarbonate of 26. Anion gap is 15.6 normal. B1 is 19 creatinine is 1.1. EGFR is greater than 60. Sodium is 133. Calcium is 9.5. Magnesium normal at 2.1. Bilirubin 0.9 liver function otherwise normal. C-reactive protein is 0.6. Total protein is slightly elevated at 8.5 albumin fraction normal at 4.5. 10/17/17 18:00: He believes he is feeling better. He still feeling rather vertiginous when he looks to the left side. He has not gotten up from bed yet. Unable to relax sleep and ease reports the nausea is much improved. I will get him up with nursing staff about quarter after the hour and see how he can navigate. 10/17/17 18:55: We did get him up about 1830 hrs. and he was able to walk fairly well. He states he's worse if he looks up or looks that up to the left side. He states he looks straight ahead or towards the floor he doesn't feel quite so vertiginous but still has "swimming vision." He would like to try things at home versus coming into the hospital. I will therefore put him on Reglan 10 mg every 6 hours for 48 hours and then on an as-needed basis hoping that will break the Mnire's cycle. I will also prescribe Ativan 1 mg every 8 hours to be taken 2 hours after the Reglan if he is still having significant vertigo symptoms. This is to be used on a when necessary basis. He will return to the ED if he continues to have nausea vomiting or is not markedly improved in 48-72 hours. Departure - Departure Time of Disposition: 18:43 Disposition: Home, Self-Care 01 Condition: Fair Clinical Impression: Vertigo, Meniere's disease of left ear - Discharge Information Prescriptions: LORazepam [Ativan] 1 mg PO Q8H PRN #15 tablet PRN Reason: meniere`s disease Metoclopramide HCl [Reglan] 10 mg PO Q6H #20 tablet Instructions: Vertigo, Meniere Disease Referrals: PCP,None [Primary Care Provider] - Forms: ED Department Discharge Additional Instructions: Evaluation the emergency room today in regards to flareup of Mnire's disease that started yesterday p.m. This is left ear with severe vertigo symptoms on minimal movement of your head to the left side and difficulty walking with associated nausea and vomiting. Treated Mnire's disease for many years although no recent flareups. You're treated in the ED with a liter of IV fluids to provide rehydration and medications Reglan 10 mg and Ativan 1 mg IV to try and gain some control of the vertigo. It was successful in relieving some of your symptoms but not all of them. This is pretty typical. Treatment at home is to take Reglan 10 mg on a planned basis every 6 hours with thinned first dose to be taken at 10:00 tonight and then at 4 am, 10 AM etc. This is to be carried out every 6 hours for 2 days and then on an as needed basis every 6-8 hours if you are having experiencing vertigo symptoms. If 2 hours after you had taken her Reglan you're still experiencing significant vertigo symptoms may take an Ativan 1 mg tablet to further relieve vertigo symptoms. This tablet to be taken up to every 8 hours as needed. If vomiting continues or vertigo worsens in any way then return to the ED for intravenous medications. - My Orders Last 24 Hours: My Active Orders 10/17/17 16:15 Dextrose 5%-0.9% NaCl [Dextrose 5%-Normal Saline] 1,000 ml IV ASDIRECTED - Assessment/Plan Last 24 Hours: My Active Orders 10/17/17 16:15 Dextrose 5%-0.9% NaCl [Dextrose 5%-Normal Saline] 1,000 ml IV ASDIRECTED
[2017-10-17] MEDS ORDERED: Dextrose 5%-0.9% NaCl 1,000 ML IV SCH (16:15)
[2017-10-17] MEDS ORDERED: Metoclopramide 10 MG/2 ML SDV IVPUSH ONE (16:16)
[2017-10-17] MEDS ORDERED: LORazepam 2 MG/ML MDV IVPUSH ONE (16:16)
== END 2017-10-17 19:00 | disposition home or self-care (01) ==
LOC: JD.ED 15:48
DX: H81.02 Meniere's disease, left ear (principal); Z79.899 Other long term (current) drug therapy
CPT/HCPCS: 36415; 80053; 83735; 85025; 86140; 96361; 96374; 96375; 99283-25; J2060; J2765; J7042